=== PATIENT | female | born 1945 | race African-American/Black ===

== ENCOUNTER → 2018-06-02 | Day surgery (SDC) | payer MEDICARE, BC ==
[2018-05-30 13:46] LABS: BASOPHILS % 0.4 % (0.0-1.0); EOSINOPHILS # (AUTO) 0.1 (0.0-0.4); EOSINOPHILS % 1.3 % (0.0-6.0); HEMATOCRIT 36.6 % (34.2-44.1); HEMOGLOBIN 11.1 g/dL (12.0-16.0); LYMPHOCYTES # (AUTO) 1.7 (1.0-3.2); LYMPHOCYTES % 20.3 % (18.0-39.1); MEAN CORPUSCULAR HEMOGLOBIN 26.2 pg (28-32); MEAN CORPUSCULAR HGB CONC 30.3 g/dL (31-35); MEAN CORPUSCULAR VOLUME 86.3 fL (81-99); MONOCYTES # (AUTO) 0.5 (0.2-0.8); MONOCYTES % 6.1 % (4.4-11.3); NEUTROPHILS # (AUTO) 6.1 (2.1-6.9); NEUTROPHILS % 71.5 % (38.7-80.0); PLATELET COUNT 239 x10e3/uL (140-360); RED BLOOD COUNT 4.24 x10e6/uL (3.6-5.1); RED CELL DISTRIBUTION WIDTH 14.4 % (11.7-14.4)
[2018-05-30 14:01] LABS: ANION GAP 11.1 mmol/L (8-16); BLOOD UREA NITROGEN 25 mg/dL (7-26); BUN/CREATININE RATIO 26 (6-25); CALCIUM 9.3 mg/dL (8.4-10.2); CARBON DIOXIDE 29 mmol/L (22-29); CHLORIDE 101 mmol/L (98-107); CREATININE, SERUM 0.95 mg/dL (0.57-1.11); EST GLOMERULAR FILTRATION RATE > 60 ML/MIN (60-); GLUCOSE 136 mg/dL (74-118); POTASSIUM 4.1 mmol/L (3.5-5.1); SODIUM 137 mmol/L (136-145)
--- NOTE | 2018-05-30 14:51 | Diagnostic Imaging Report ---
EXAMINATION: CHEST 2 VIEWS INDICATION: Pre-op COMPARISON: None FINDINGS: TUBES and LINES: None. LUNGS: Lungs are well inflated. Mild patchy left basilar opacity There is no evidence of pneumonia or pulmonary edema. PLEURA: No pleural effusion or pneumothorax. HEART AND MEDIASTINUM: The cardiomediastinal silhouette is unremarkable. BONES AND SOFT TISSUES: No acute osseous lesion. Soft tissues are unremarkable. UPPER ABDOMEN: No free air under the diaphragm. Surgical clips project over the upper abdomen. IMPRESSION: No acute radiographic abnormality. Signed by: Dr. Mercedes Loya MD on 05/30/2018 2:47 PM
[~2018-06-02] MED LIST: BUPIVACAINE HCL 0.5% 10ML MPF VIAL INJ ONE; CEFAZOLIN SOD 2 GM/D5W 50ML 50 ML IV ONE; CLIMARA PRO PA1 EACH TOP; DEXAMETHASONE SOD PHOS INJ 4 MG/ML VIAL ONE; FENTANYL CITRATE/PF 100MCG/2 ML INJ ONE; MIDAZOLAM HCL 2 MG/2 ML VIAL ONE; MUPIROCIN 2% OINT 22 GM TUBE ONE; SYNTHROID100 MCG PO
--- OUTSIDE RECORDS SUMMARY | 2018-06-02 05:28 | XMS REPORT ---
Author Author [facility] Address Unknown Phone Unavailable Care Team Providers Care Corporate Learning Consultant Name Role Phone VITALY MULLINS Unavailable Unavailable Problems This patient has no known problems. Allergies, Adverse Reactions, Alerts This patient has no known allergies or adverse reactions. Medications This patient has no known medications. Results Test Description Test Time Test Comments Text Results Atomic Results Result Comments CHEST 2 VIEWS 2018-05-30 14:44:00 [place] [address] Patient Name: ROSIO LINARES MR #: [id number] : 1945 Age/Sex: 72/F Req #: [id number] Adm Physician: Ordered by: VITALY MULLINS DPM Report #: [id number] Location: OR Room/Bed: Procedure: [id number] DX/CHEST 2 VIEWS Exam Date: 05/30/18 Exam Time: 1300 REPORT STATUS: Signed EXAMINATION: CHEST 2 VIEWS INDICATION: Pre-op COMPARISON: None FINDINGS: TUBES and LINES: None. LUNGS: Lungs are well inflated. Mild patchy left basilar opacity There is no evidence of pneumonia or pulmonary edema. PLEURA: No pleural effusion or pneumothorax. HEART AND MEDIASTINUM: The cardiomediastinal silhouette is unremarkable. BONES AND SOFT TISSUES: No acute osseous lesion. Soft tissues are unremarkable. UPPER ABDOMEN: No free air under the diaphragm. Surgical clips project over the upper abdomen. IMPRESSION: No acute radiographic abnormality. Signed by: Dr. David Fisher MD on 05/30/2018 2:47 PM Dictated By: DAVID FISHER MD [id number] Transcribed By: WAGNER on 05/30/18 [id number] COPY TO: VITALY MULLINS DPM
[2018-06-02 09:25] VITALS: BP 120/73
--- NOTE | 2018-06-16 16:32 | Operative Report ---
DATE OF PROCEDURE: June 02, 2018 PREOPERATIVE DIAGNOSES 1. Hammertoes, 2 and 3 of the left foot. 2. Hammertoe, 5th digit, left foot. POSTOPERATIVE DIAGNOSES 1. Hammertoes, 2 and 3 of the left foot. 2. Hammertoe, 5th digit, left foot. TITLE OF OPERATIONS 1. Arthrodesis, digits 2 and 3, left foot. 2. Arthroplasty, 5th digit, left foot. PROCEDURE IN DETAIL: The patient was taken to the operating room in a mildly sedated state and placed upon the operating table in the supine position. Following induction of general anesthetic, the left lower extremity is elevated to 60 degrees to exsanguinate before inflating the pneumatic thigh tourniquet to 350 mmHg for good hemostasis. The left lower extremity was placed upon the operating table prior to performing the following procedure. PROCEDURE #1: Rigidly retracted hammertoe, 2 and 3 of the left foot. A linear longitudinal incision was made overlying the dorsal aspect of the 2nd and 3rd digits individually. These were separate incisions. The incision was deepened via sharp and blunt dissection down to the level of the dorsal capsular structure. Care was taken to identify and retract all vital structures encountered. The head of the 1st metatarsal was delivered in the surgical site and remodeled utilizing a oscillating saw. The doqjgnn-fjz-[id number] dissection revealed rigid contracture. A 0.045 K-wire was used to pin and digital implant was placed, both in the 2nd and 3rd digits. This area was irrigated. Deep closure and tendon repair was 3-0 Vicryl and skin closure was 4-0 nylon. Attention was then directed to the 5th digit of the left foot. A linear longitudinal incision made overlying the 5th digit of the left foot. There was not only a large bony prominence to the exterior, but also on the medial aspect of the digit. Incision was deepened and the head of the proximal phalanx was resected and remodeled and distal intermediate phalanx as well. The area was irrigated with copious amounts of sterile saline solution. Deep closure was 3-0 Vicryl and skin closure was 4-0 nylon. The areas of surgery were then blocked with 0.5 Marcaine and Decadron LA. Release of the pneumatic thigh tourniquet showed a normal hyperemic flush to all digits of the left foot. The patient left the operating room with vital signs stable and in apparent satisfactory condition having tolerated both anesthetic and the procedure very well. Job#: [id number] YOLIS
== END | disposition home or self-care (01) ==
LOC: OR 05:26
PROVIDERS: ATTEND Podiatrist Foot Surgery
DX: M20.42 Other hammer toe(s) (acquired), left foot (principal); G47.33 Obstructive sleep apnea (adult) (pediatric); E66.9 Obesity, unspecified; Z88.2 Allergy status to sulfonamides; Z01.810 Encounter for preprocedural cardiovascular examination; Z01.812 Encounter for preprocedural laboratory examination; Z01.818 Encounter for other preprocedural examination
CPT/HCPCS: 28285 ×3; 36415; 71046; 80048; 85025; 93005; C1713 ×2; J0690; J1100; J2250; Q4100; 76000

== ENCOUNTER → 2018-10-13 | Day surgery (SDC) | payer MEDICARE, BC ==
[2018-10-10 12:46] LABS: BASOPHILS % 0.3 % (0.0-1.0); EOSINOPHILS # (AUTO) 0.1 (0.0-0.4); EOSINOPHILS % 1.6 % (0.0-6.0); HEMATOCRIT 38.1 % (34.2-44.1); HEMOGLOBIN 12.2 g/dL (12.0-16.0); LYMPHOCYTES # (AUTO) 1.6 (1.0-3.2); LYMPHOCYTES % 17.7 % (18.0-39.1); MEAN CORPUSCULAR HEMOGLOBIN 26.4 pg (28-32); MEAN CORPUSCULAR VOLUME 82.5 fL (81-99); MONOCYTES # (AUTO) 0.6 (0.2-0.8); MONOCYTES % 6.7 % (4.4-11.3); NEUTROPHILS # (AUTO) 6.6 (2.1-6.9); NEUTROPHILS % 73.3 % (38.7-80.0); PLATELET COUNT 238 x10e3/uL (140-360); RED BLOOD COUNT 4.62 x10e6/uL (3.6-5.1); RED CELL DISTRIBUTION WIDTH 15.7 % (11.7-14.4)
[2018-10-10 12:59] LABS: ANION GAP 11.1 mmol/L (8-16); BLOOD UREA NITROGEN 23 mg/dL (7-26); BUN/CREATININE RATIO 28 (6-25); CARBON DIOXIDE 26 mmol/L (22-29); CHLORIDE 106 mmol/L (98-107); CREATININE, SERUM 0.83 mg/dL (0.57-1.11); EST GLOMERULAR FILTRATION RATE > 60 ML/MIN (60-); GLUCOSE 88 mg/dL (74-118); POTASSIUM 4.1 mmol/L (3.5-5.1); SODIUM 139 mmol/L (136-145)
--- NOTE | 2018-10-10 13:14 | Diagnostic Imaging Report ---
EXAMINATION: PA and lateral views of the chest. COMPARISON: 05/30/2018 CLINICAL HISTORY: Preoperative study for foot surgery DISCUSSION: Lines/tubes: None. Lungs: The lungs are well inflated and clear. There is no evidence of pneumonia or pulmonary edema. Pleura: There is no pleural effusion or pneumothorax. Heart and mediastinum: The cardiomediastinal silhouette is normal. Bones and soft tissues: No acute bony abnormalities. Degenerative changes in the thoracic spine IMPRESSION: No acute cardiopulmonary abnormalities. Signed by: Dr. Isael Jo M.D. on 10/10/2018 1:10 PM
[~2018-10-13] MED LIST changes: +ACETAMINOPHEN 1000 MG/100 ML IV ONE; +BUPIVACAINE HCL 0.5% INJ 30 ML VIAL INJ ONE; +HYDROCODONE/APAP 5MG-325MG TAB ONE; +LIDOCAINE HCL 2% LOCAL INJ 5 ML SDV VIAL INJ ONE; +MAGNESIUM OXID400 MG PO; -MIDAZOLAM HCL 2 MG/2 ML VIAL ONE; -MUPIROCIN 2% OINT 22 GM TUBE ONE; +NEOSTIGMINE 1 MG/ML 10ML VIAL ONE; +ONDANSETRON HCL INJ 2MG/ML 2ML 2 MG/ML VIAL ONE; +PROPOFOL IV EMULSION 10 MG/ML 20 ML VIAL ONE; +SEVOFLURANE INHAL SOLN 250 ML PEN BTL ONE
[2018-10-13 10:15] VITALS: BP 119/68
--- NOTE | 2018-10-13 21:19 | Operative Report ---
DATE OF PROCEDURE: 10/13/2018 SURGEON: Clive Martin DPM PREOPERATIVE DIAGNOSES: 1. Rigidly contracted hammertoes, second and third digits of the right foot. 2. Tailor's bunion deformity, right foot. POSTOPERATIVE DIAGNOSES: 1. Rigidly contracted hammertoes, second and third digits of the right foot. 2. Tailor's bunion deformity, right foot. TYPE OF THE OPERATIONS: 1. Arthrodesis of digits 2 and 3 of the right foot. 2. Tailor's bunionectomy, right foot. ANESTHESIA: General endotracheal. HEMOSTASIS: Right thigh tourniquet at 350 mmHg. PROCEDURE IN DETAIL: The patient was taken to the operating room in a mildly sedated state and placed upon the operating table in supine position. Following induction of general anesthetic, the right lower extremity was elevated to 60 degrees to exsanguinate before inflating the pneumatic thigh tourniquet to 350 mmHg to create good hemostasis. The right lower extremity was placed upon the operating room table prior to performing the following procedure. PROCEDURE #1: Modified arthrodesis of second and third digits of the right foot. A linear longitudinal incisions were made on the line separately the second and third digits of the right. These two separate incisions were deepened via sharp and blunt dissection down to the level of dorsal capsular structure. Care was taken to identify and retract all vital structures. Head of the proximal phalanx was delivered in the surgical site and remodeled utilizing a cup and cone reamer with [employer] implant arthrodesis set. After appropriate fit being noted, those were installed utilizing a standard technique, this having been accomplished and the area was irrigated with copious amounts of sterile saline solution and K-wires were advanced across the metatarsophalangeal joint for further stability. Deep closure with 3-0 Vicryl and skin closure with 4-0 nylon. K-wires were bent and cut to their appropriate length and digital alignment was confirmed with fluoroscopy and noted to be excellent. PROCEDURE #2: Tailor's bunionectomy of the right foot. Two converging semi-elliptical incisions were made over the previous scar site of the fifth metatarsal tailor's bunion area of the right foot. A significant bursa and large underlying scar tissue were excised. The area was irrigated with copious amounts of sterile saline solution. All superficial bleeders were electrocoagulated. Oscillating saw was used to smooth down the lateral aspect of the fifth met that having been accomplished and the irrigation being performed. Deep closure with 3-0 Vicryl and skin closure with 4-0 nylon. The areas of surgery were all blocked by 0.5 Marcaine and Decadron LA and release of the pneumatic thigh tourniquet showed a normal hyperemic flush to all digits of the right foot. The patient tolerated the anesthetic and procedure very well. ERICK Zaragoza/NAVDEEP /[id number]
== END | disposition home or self-care (01) ==
LOC: OR 05:34
PROVIDERS: ATTEND Podiatrist Foot Surgery
DX: M20.41 Other hammer toe(s) (acquired), right foot (principal); M21.621 Bunionette of right foot; G47.33 Obstructive sleep apnea (adult) (pediatric); E03.9 Hypothyroidism, unspecified; R53.1 Weakness; Z88.2 Allergy status to sulfonamides; Z01.810 Encounter for preprocedural cardiovascular examination; Z01.812 Encounter for preprocedural laboratory examination; Z01.818 Encounter for other preprocedural examination
CPT/HCPCS: 36415; 71046; 76000; 80048; 85025; 93005; C1713; J0690; J1100; J2001; J2405; J2710